=== PATIENT | female | born 1985 | race Caucasian/White ===

== ENCOUNTER 2016-12-08 08:00 | Inpatient (IN) | payer OTHER ==
[~2016-12-08] VITALS: Ht 160 cm; Wt 69.4 kg
[~2016-12-08 08:00] MED LIST: 0.9% SODIUM CHLORIDE 10 ML VIAL IVP ONE; KETOROLAC TROMETHAMINE 60 MG/2 ML VIAL IM ONE; OXYTOCIN 10 UNITS/ML VIAL IM ONE; PHENYLEPHRINE HCL 10 MG/ML VIAL IVP ONE; PREN1TAB52 PO
[2016-12-08 08:20] VITALS: BP 95/50
[2016-12-08] MEDS: RINGERS SOLUTION,LACTATED 1,000 ML IV SCH ×2 (09:19→12:36)
[2016-12-08] MEDS ORDERED: METOCLOPRAMIDE HCL 5 MG/ML 2 ML VIAL IVP ONE (12:00)
[2016-12-08] MEDS ORDERED: CITRIC ACID/SODIUM CITRATE 30 ML SOLUTION UDCUP PO ONE (12:00)
[2016-12-08 12:32] LABS: BASOPHILS # (AUTO) 0.03 K/uL (0.00-0.20); BASOPHILS % (AUTO) 0.3 % (0.0-2.0); EOSINOPHILS # (AUTO) 0.03 K/uL (0.00-0.70); HEMATOCRIT 34.2 % (36-46); HEMOGLOBIN 11.5 g/dL (12.0-16.0); LYMPHOCYTES # (AUTO) 2.2 K/uL (1.0-4.8); LYMPHOCYTES % (AUTO) 26.8 % (22.0-44.0); MEAN CORPUSCULAR HGB CONC 33.5 G/dL (31.0-37.0); MEAN CORPUSCULAR VOLUME 95 fL (80-100); MONOCYTES # (AUTO) 0.5 K/uL (0.1-1.0); MONOCYTES % (AUTO) 5.6 % (2.0-9.0); NEUTROPHILS # (AUTO) 5.4 K/uL (1.8-7.7); NEUTROPHILS % (AUTO) 66.9 % (40.0-70.0); RED BLOOD CELL COUNT(AUTO) 3.58 MIL/uL (4.00-5.20); RED CELL DISTRIBUTION WIDTH 15.2 % (11.5-14.5)
[2016-12-08] MEDS ORDERED: MORPHINE SULFATE/PF 0.5 MG/ML 10 ML AMP ONE (17:24)
[2016-12-08] MEDS ORDERED: FentaNYL CITRATE-PF 100 MCG/2 ML VIAL ONE (17:24)
[2016-12-08] MEDS ORDERED: DiphenhydrAMINE HCL 50 MG/ML VIAL IVP PRN ×2 (18:15)
[2016-12-08] MEDS ORDERED: DiphenhydrAMINE HCL 50 MG/ML VIAL IM PRN (18:15)
[2016-12-08] MEDS ORDERED: DEXAMETHASONE SOD PHOS 4 MG/ML VIAL IVP PRN (18:15)
[2016-12-08] MEDS ORDERED: NALBUPHINE HCL 10 MG/ML VIAL IVP PRN ×3 (18:15)
[2016-12-08] MEDS ORDERED: PROMETHAZINE HCL 12.5 MG in SODIUM CHLORIDE 0.9% 50 ML IV PRN (18:15)
[2016-12-08] MEDS ORDERED: ONDANSETRON HCL 4 MG/2 ML VIAL IVP PRN ×2 (18:15)
[2016-12-08] MEDS ORDERED: MORPHINE SULFATE 10 MG/ML SYRINGE IVP PRN (18:15)
[2016-12-08] MEDS ORDERED: NALOXONE HCL 0.4 MG/ML VIAL IVP PRN (18:15)
[2016-12-08] MEDS ORDERED: FentaNYL CITRATE-PF 100 MCG/2 ML VIAL IVP PRN (18:15)
[2016-12-08] MEDS ORDERED: LANOLIN 7 GM OINTMENT TP PRN (18:30)
[2016-12-08] MEDS ORDERED: ACETAMINOPHEN/CODEINE 300-30 MG TABLET PO PRN (18:30)
[2016-12-08] MEDS ORDERED: OXYGEN THERAPY IH SCH ×3 (20:00)
[2016-12-08] MEDS: OXYGEN THERAPY IH SCH (20:00)
[2016-12-08] MEDS: DEXTROSE 5%-0.45% SODIUM CHL 1,000 ML IV SCH (20:30)
[2016-12-08] MEDS: MAGNESIUM HYDROXIDE SUSPENSION 30 ML UDCUP PO SCH (21:55)
[2016-12-09] MEDS: DEXTROSE 5%-0.45% SODIUM CHL 1,000 ML IV SCH ×3 (00:18→08:54)
[2016-12-09] MEDS: KETOROLAC TROMETHAMINE 30 MG/ML VIAL IVP SCH ×2 (00:18→06:21)
[2016-12-09] MEDS: MAGNESIUM HYDROXIDE SUSPENSION 30 ML UDCUP PO SCH ×2 (08:53→21:03)
[2016-12-09 10:59] LABS: BASOPHILS % (AUTO) 0.4 % (0.0-2.0); EOSINOPHILS % (AUTO) 0.1 % (1.0-6.0); HEMATOCRIT 27.6 % (36-46); HEMOGLOBIN 8.9 g/dL (12.0-16.0); LYMPHOCYTES # (AUTO) 1.4 K/uL (1.0-4.8); LYMPHOCYTES % (AUTO) 12.8 % (22.0-44.0); MEAN CORPUSCULAR HEMOGLOBIN 30.8 pg (26.0-34.0); MEAN CORPUSCULAR HGB CONC 32.4 G/dL (31.0-37.0); MEAN CORPUSCULAR VOLUME 95 fL (80-100); MONOCYTES # (AUTO) 0.6 K/uL (0.1-1.0); MONOCYTES % (AUTO) 5.7 % (2.0-9.0); NEUTROPHILS # (AUTO) 9.1 K/uL (1.8-7.7); RED CELL DISTRIBUTION WIDTH 15.2 % (11.5-14.5); WHITE BLOOD COUNT (AUTO) 11.2 K/uL (4.5-11.0)
[2016-12-09] MEDS: IBUPROFEN 800 MG TABLET PO SCH ×2 (11:57→18:10)
[2016-12-09] MEDS: ACETAMINOPHEN/CODEINE 300-30 MG TABLET PO PRN ×2 (14:18→21:04)
[2016-12-09] MEDS: OXYGEN THERAPY IH SCH (19:25)
[2016-12-10] MEDS: IBUPROFEN 800 MG TABLET PO SCH ×4 (00:28→18:05)
[2016-12-10] MEDS: ACETAMINOPHEN/CODEINE 300-30 MG TABLET PO PRN (08:04)
[2016-12-10] MEDS: MAGNESIUM HYDROXIDE SUSPENSION 30 ML UDCUP PO SCH ×2 (08:53→21:00)
[2016-12-11] MEDS: IBUPROFEN 800 MG TABLET PO SCH ×2 (00:47→06:22)
[2016-12-11] MEDS: MAGNESIUM HYDROXIDE SUSPENSION 30 ML UDCUP PO SCH (09:00)
[2016-12-11] MEDS ORDERED: PERCT PO (11:22)
[2016-12-11] MEDS ORDERED: DSS100 PO (11:23)
[2016-12-11] MEDS ORDERED: IBUP-1547 PO (11:23)
[2016-12-11] MEDS ORDERED: FERR-89 PO (11:24)
== END 2016-12-11 15:27 | disposition home or self-care (01) | DRG 766 ==
LOC: OBSVTOIN 08:00 → 4S 08:00
PROVIDERS: ADMIT Obstetrics & Gynecology; ATTEND Obstetrics & Gynecology
PROC: 10D00Z1 Extraction of Products of Conception, Low, Open Approach (ICD-10-PCS; principal; 2016-12-08)
DX: O34.219 Maternal care for unspecified type scar from previous cesarean delivery (principal); Z3A.39 39 weeks gestation of pregnancy; Z37.0 Single live birth
CPT/HCPCS: 86850; 86900; 86901; 87081; J0690; J1885; J2274; J2370; J2590; J2765; J3010; J7120